=== PATIENT | female | born 1985 | race Caucasian/White ===

== ENCOUNTER → 2017-09-10 09:24 | Outpatient (CLI) | payer OTHER, SELFPAY ==
[2017-09-10 10:54] LABS: Absolute Neutrophil Count 3.3 X10^3/uL (2.0-7.7); Basophil# 0.05 X10^3/uL; Basophil% 0.8 % (0-1); Eosinophil# 0.08 X10^3/uL; Eosinophils% 1.3 % (0-5); Hematocrit 43.1 % (37-47); Hemoglobin 14.6 g/dl (12.0-15.0); Lymphocyte % 36.2 % (19-41); Mean Corp Hgb Conc 33.9 g/gl (32-36); Mean Corpuscular Hgb 29.6 pg (27.0-32.0); Mean Corpuscular Volume 87.4 fL (81-99); Mean Platelet Vol. 10.5 fl (6.2-12.0); Monocyte# 0.47 X10^3/uL; Monocyte% 7.7 % (0-10); Neutrophil # 3.26 X10^3/uL (2.7-7.7); Neutrophil % 53.8 % (47-70); POSITIVE COUNT NO; POSITIVE DIFFERENTIAL NO; POSITIVE MORPHOLOGY NO; Platelet Count 318 K/mm3 (150-450); RBC Distribution Width CV 12.8 % (11.6-14.6); RBC Distribution Width SD 40.6 fl (35.1-43.9); Red Blood Count 4.93 M/mm3 (4.2-5.4); White Blood Count 6.1 K/mm3 (4.4-11.0)
[2017-09-10 11:43] LABS: Free T3 2.7 pg/mL (2.18-3.98); T4 Total, Thyroxin 9.3 ug/dL (4.8-13.9); Thyroid Stim Hormone (TSH) 1.75 uIU/mL (0.358-3.74)
== END ==
PROVIDERS: Family Provider Family Medicine; PCP Family Medicine; Visit Provider Family Medicine
DX: E03.9 Hypothyroidism, unspecified (principal)
CPT/HCPCS: 36415; 84436; 84443; 84481; 85025

== ENCOUNTER → 2018-01-24 15:37 | Outpatient (CLI) | payer OTHER, SELFPAY ==
[2018-01-24 18:35] LABS: Thyroid Stim Hormone (TSH) 1.81 uIU/mL (0.358-3.74)
== END ==
PROVIDERS: Family Provider Family Medicine; PCP Family Medicine; Visit Provider Family Medicine
DX: E03.9 Hypothyroidism, unspecified (principal)
CPT/HCPCS: 36415; 84443

== ENCOUNTER → 2018-02-22 16:49 | Outpatient (CLI) | payer OTHER, SELFPAY ==
[2018-02-25 13:27] LABS: HPV Reflexed? NOT INDICATED
== END ==
PROVIDERS: Visit Provider Obstetrics & Gynecology
DX: Z12.4 Encounter for screening for malignant neoplasm of cervix (principal)
CPT/HCPCS: 88175; G0145

== ENCOUNTER 2018-05-04 10:15 | Day surgery (SDC) | payer OTHER, SELFPAY ==
--- NOTE | 2018-05-03 17:31 | PCM.HPOB.BLA ---
History and Physical Date of Admission: 05/04/18 Date: 05/03/2018 Name: WILLEM RAMOS Age: 32 Date of : 1985 HISTORY OF PRESENT ILLNESS: On 05/03/2018, Willem Ramos, a 32 year old female 2 0 0 0 2, presented for: -- Willem is here for bilateral tubal ligation as spouse not as comfortable with vasectomy. They are certain they are done with childbearing. Reviewed R,B,A of laparoscopic BTO, BTF vs bilateral salpingectomy Prefers bilateral salpingectomy for potential decreased risk of ovarian cancer. EB ALLERGIES: Nortriptyline, Skin rash MEDICATIONS HISTORY: Current medications prescribed by our practice are: 1. moybsziyfn-yadakcsqunxbw-dgxnlbcm 50 mg-325 mg-40 mg tablet, 1 to 2 po q 4 hr prn AMBROSE 2. Synthroid 50 mcg tablet, 1 tab daily 3. Xopenex HFA 45 mcg/actuation aerosol inhaler, 1 to 2 puff q 4 hr prn Patient is also takin. vitamin B complex capsule 2. Wellbutrin XL 300 mg 24 hr tablet, extended release, 1 daily 3. gabapentin 100 mg capsule, daily REVIEW OF SYSTEMS: GENERAL - Denies fever, or chills SKIN - Denies skin changes EYES - Denies visual changes EARS - Denies difficulty hearing NOSE - Denies nasal congestion or bleeding MOUTH - Denies sore throat or difficulty swallowing NECK - Denies pain or swelling RESPIRATORY - Denies shortness of breath or wheezing CARDIOVASCULAR - Denies palpitations or chest pain GASTROINTESTINAL - Denies nausea, vomiting, diarrhea, constipation GENITOURINARY - Denies dysuria, frequency of urination, incontinence of urine MUSCULOSKELETAL - Denies joint or muscle pain NEUROLOGICAL - Denies localized numbness or weakness PSYCHIATRIC - Denies depression or anxiety ENDOCRINE - Denies heat or cold intolerance, weight loss or gain HEMATO-IMMUNOLOGIC - Denies excesive bleeding with cuts PAST HISTORY: Breast/Ovarian/Colon Cancers - Denies Infections - Chicken pox and mono Illnesses - mild asthma allergy induced. No wheezing x 3 y. Accidents - lower back issues, fall as child History of Abnormal PAPS - Denies Hospitalizations - surgery SURGICAL HISTORY: 1. right knee surgery, 2000 2. 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 Tax season 50+. Spouse-Sig Other Name - Niranjan Spouse-Sig Other Occupation - [employer], president Spouse-Sig Other Phone No - [phone] Children Name(s) - Prachi Hernandez ([id number] Control - condoms PHYSICAL EXAMINATION BP- 120/94 Sitting, Right arm, large cuff Weight- 246.60 lbs Height- 67.00 inch BMI:38.70 CONSTITUTIONAL - NAD, well nourished, and well developed HEENT - Normocephalic, PERRLA, EOMI NECK - no nuchal rigidity ASSESSMENT: 1. Other Specified Counseling PLAN BY DIAGNOSIS: 1. Other Specified Counseling Requesting bilateral tubal ligation. Reviewed methods: R,B,Alternatives and failure rates Advised against ESSURE. May consider L/S BTO Filshie clips, L/S bilateral tubal fulgeration, or laparoscopic bilateral salpingectomy Laparoscopic bilateral salpingectomy as planned. RTO in 2 wk for postop follow up appt in office. Medication(s) Stopped/Reason: Vitamin tablet - No Longer Needed, DHA Algal-900 300 mg capsule - No Longer Needed and smhjcvbhvg-xysbhpyoiwdrj-phitfdcm 50 mg-325 mg-40 mg tablet - No Longer Needed
[2018-05-04] VITALS (10 sets, daily range): BP systolic 122–137; BP diastolic 66–81; PULSE 70–95; RESP 14–16; TEMP 23.3–36.9; O2SAT 93–99; BMI 38.4
--- NOTE | 2018-05-04 | FALS_PTH ---
PATIENT: WILLEM RAMOS LOC: [facility] [place] U#:[id number] AGE/SX: 32/F ROOM: RE05/04/[address]: Dr. Evie Baez MD : 1985 BED: DIS: 05/04/2018 SPEC #: [id number] RECD: 05/05/18 10:53 STATUS: LORA RESalvador #: [id number] JAMIE: 05/04/18 00:[address]: Evie Baez DEPT: SURGICAL PATHOLOGY RECD BY: Fidencio Albrecht ENTERED: 05/05/18 10:53 SP TYPE: FALL TUBES OTHR DR: Dr. Jose Eduardo Oswald MD Tissues: Fallopian tube Procedures: Surgery Specimen Level II HEADER OPERATION: Laparoscopic salpingectomy PRE-OP DIAGNOSIS: Sterilization request TISSUE SUBMITTED: Bilateral fallopian tubes MICROSCOPIC DIAGNOSIS Bilateral fallopian tubes, bilateral salpingectomy: Bilateral fallopian tubes including fimbrial ends, no pathologic diagnosis. SJ:jasmin 05/06/18 MICROSCOPIC DESCRIPTION Slides are reviewed. GROSS DESCRIPTION Received is one container labeled with the patient's name and designated bilateral fallopian tubes. The specimen consists of bilateral fallopian tubes including fimbrial ends. The fallopian tubes are not identified as right or left. One of the fallopian tubes measure 7 cm in length and 0.7 cm in diameter and the second fallopian tube measures 6.5 cm in length and up to 0.8 cm in diameter. Also present in the container are detached pieces of tissue consistent with fimbrial end measuring in aggregate 1.5 x 1 x 0.3 cm. Detached pieces of fimbrial ends are inked black. Pinking Machine Operator sections are submitted in two cassettes with each cassette containing one fallopian tube and detached pieces of fimbrial ends are submitted in cassette 2. / DANIEL:jasmin 05/05/18 TC:4 CPT: 96475 x2
[2018-05-04 10:47] LABS: Internal QC Validated? YES +Cl - CLEAR BKGD; Pregnancy, Urine Negative Negative
--- NOTE | 2018-05-04 12:08 | PCM.DC.TUB ---
Discharge Diet: No Restrictions Discharge Activity: Return to Normal Activity Return to work on:: 05/09/18 May resume sexual activity in: 1 week - when comfortable Additional Activity Instructions:: Ambulate often the next week after surgery. Nothing in the vagina for 5 days. Change Dressing in (Days):: 4 Remove Dressing in (days):: 4 Cleanse incision/area with: Soap & Water, Keep Dressing Clean & Dry Additional Instructions: Resume activity as tolerated / comfortable on 05/05/18. You may take TWO Aleve or Three Ibuprofen every 8 hr as needed for milder pain. Add Percocet as needed for more severe pain. Allergies/Adverse Reactions: Allergies coconut oil Allergy (Verified 05/04/18 10:31) Anaphylaxis swelling in face nortriptyline [Nortriptyline] Allergy (Verified 05/04/18 10:31) Rash Medications to take at Discharge Levothyroxine [Synthroid] 50 mcg PO DAILY #30 tablet 03/22/14 Levalbuterol Tartrate [Xopenex Hfa Inhaler] 1 puff INHALATION PRN PRN 01/28/16 [place]-3 Fatty Acids [Fish Oil] 500 mg PO DAILY 01/28/16 Vit B Comp&C/Folic Acid/Vit D3 1 tab PO DAILY 01/28/16 buPROPion tablets [Wellbutrin tablets] 350 mg PO QHS 01/04/17 Cholecalciferol (Vitamin D3) [Vitamin D3] 5,000 unit PO DAILY 04/27/18 Gabapentin [Neurontin] 100 mg PO QHS 04/27/18 Oxycodone HCl/Acetaminophen [Percocet 5-325] 1 - 2 tablet PO Q6H PRN PRN 2 Days #10 tablet 05/04/18 The following prescriptions were given: Oxycodone HCl/Acetaminophen [Percocet 5-325] 1 - 2 tablet PO Q6H PRN PRN 2 Days #10 tablet PRN Reason: Moderate Pain Primary Care Physician: Jose Eduardo Oswald MD [Primary Care Provider] - Test Results: Test results from this visit will be discussed in further detail at your follow-up appointment, if applicable. Please Follow Up With: Evie Baez MD - [phone] When: in two weeks for postoperative appointment, incision check. Proposed Discharge Date: 05/04/18
--- NOTE | 2018-05-04 12:12 | DCINST_ITS ---
Discharge Diet: No Restrictions Discharge Activity: Return to Normal Activity Return to work on:: 05/09/18 May resume sexual activity in: 1 week - when comfortable Additional Activity Instructions:: Ambulate often the next week after surgery. Nothing in the vagina for 5 days. Change Dressing in (Days):: 4 Remove Dressing in (days):: 4 Cleanse incision/area with: Soap & Water, Keep Dressing Clean & Dry Additional Instructions: Resume activity as tolerated / comfortable on 05/05/18. You may take TWO Aleve or Three Ibuprofen every 8 hr as needed for milder pain. Add Percocet as needed for more severe pain. Allergies/Adverse Reactions: Allergies coconut oil Allergy (Verified 05/04/18 10:31) Anaphylaxis swelling in face nortriptyline [Nortriptyline] Allergy (Verified 05/04/18 10:31) Rash Medications to take at Discharge Levothyroxine [Synthroid] 50 mcg PO DAILY #30 tablet 03/22/14 Levalbuterol Tartrate [Xopenex Hfa Inhaler] 1 puff INHALATION PRN PRN 01/28/16 [place]-3 Fatty Acids [Fish Oil] 500 mg PO DAILY 01/28/16 Vit B Comp&C/Folic Acid/Vit D3 1 tab PO DAILY 01/28/16 buPROPion tablets [Wellbutrin tablets] 350 mg PO QHS 01/04/17 Cholecalciferol (Vitamin D3) [Vitamin D3] 5,000 unit PO DAILY 04/27/18 Gabapentin [Neurontin] 100 mg PO QHS 04/27/18 Oxycodone HCl/Acetaminophen [Percocet 5-325] 1 - 2 tablet PO Q6H PRN PRN 2 Days #10 tablet 05/04/18 The following prescriptions were given: Oxycodone HCl/Acetaminophen [Percocet 5-325] 1 - 2 tablet PO Q6H PRN PRN 2 Days #10 tablet PRN Reason: Moderate Pain Primary Care Physician: Jose Eduardo Oswald MD [Primary Care Provider] - Test Results: Test results from this visit will be discussed in further detail at your follow- up appointment, if applicable. Please Follow Up With: Evie Baez MD - [phone] When: in two weeks for postoperative appointment, incision check. Proposed Discharge Date: 05/04/18
[2018-05-04] MEDS: Bupiv/Epi 0.5% Mpf 30 ML Vial (12:31)
--- NOTE | 2018-05-04 13:14 | PCM.OP.BLANK ---
Operative Report Date of Procedure: 05/04/18 PROCEDURE: Laparoscopic Bilateral Salpingectomy PREOPERATIVE DIAGNOSIS: Sterilization request POSTOPERATIVE diagnosis: Sterilization request Surgeon: Evie Baez MD Anesthesia: general anesthesia. BALWINDER Villar. Handy Khan MD Production Team Member: none. EBL: minimal Complications: None Drains: Red Moyer catheter used to drain the bladder prior to initiation of the case Fluids: LR replacement Findings; Normal appearing, anteverted uterus. Fallopian tubes and ovaries are WNL. Gross inspection of bowel, omentum. liver edge also WNL. photos were taken of the uterus and ovaries after Bilateral salpingectomy, and of the RUQ / liver edge Narrative account: After the risks, benefits, alternatives of procedure had been reviewed with the patient, informed consent was obtained. The patient was taken back to the Operating room with an IV running. she was positioned on the operating table in dorsal supine position, where she was given general anesthesia. Once asleep she was repositioned to the dorsal lithotomy position and prepped and draped in the usual sterile fashion. A red Moyer catheter was used to drain the bladder prior to initiating the case. A sponge stick was placed into the vagina to allow manipulation of the uterus and cervix during the case. Attention was then turned to the anterior abdominal wall where 0.25 % Marcaine with epinephrine was instilled at the suprapubic and infraumbilical skin and at a point midway between in the midline. Skin incisions were then created in the midline at the suprapubic skin and at the infraumbilical skin and midway between the two. While maintaining upward traction of the anterior abdominal wall a Veress needle was inserted through the umbilical incision into the peritoneal cavity. There was free drop of saline, low opening pressure and free flow of CO2 noted. Once the intraabdominal pressure had reached 15 mm of mercury the Veress needle was removed and a bladeless 5 mm trocar was placed through infraumbilical skin incision into the peritoneal cavity. Correct placement was confirmed using the scope. Under direct visualization then with the patient in Trendelenburg position, a bladeless 5 mm trocar was inserted in through suprapubic skin incision into the peritoneal cavity and at a point midway between the infraumbilical and suprapubic trocars. The uterus as anteverted and both ovaries and fallopian tubes were WNL. The L fallopian tube was grasped and retracted medially and using a LigaSure device the fallopian tube was excised from the ovary and mesosalpinx. Excellent hemostasis was noted at the excision site. The L fallopian tube was brought through the suprapubic trocar and set aside for later pathology review. In a similar manner the R fallopian tube was grasped and retracted medially and the fallopian tube was excised and removed from the abdominal cavity through the suprapubic trochar. The Fallopian tubes were sent to pathology. Excellent hemostasis was noted by visualization of the pelvis, ovaries, and remaining mesosalpinx. Photos were taken of the uterus and Bilateral remaining ovaries and of the RUQ and liver edge. At this point the the procedure was terminated. The pneumoperitoneum was reduced and the instruments and trocars were removed from he the anterior abdominal wall skin. The skin incisions were closed with 4-0 Monocryl in a subcuticular fashion. Dermabond and OpSites were applied to the skin. The sponge stick was removed from the vagina. The patient was returned to dorsal supine position. She was awakened from general anesthesia. She was transferred to the recovery room bed in stable condition after tolerating the procedure well. Sponge, lap, needle and instrument counts were correct x two. Medications given preop and intraoperatively included: 10 cc of 1/2 % Marcaine with epinephrine --used as a subcutaneous block and Toradol 30 mg IV x one. For a complete listing of medications given preop and intraop , please see the anesthesia record.
--- OUTSIDE RECORDS SUMMARY | 2018-06-29 18:38 | XMS RPT_ITS ---
:1985 Author Organization OHIP Care Team Providers Name Role Phone Jose Eduardo Oswald Attending Unavailable Jose Eduardo Oswald Primary Care Unavailable Jose Eduardo Oswald Attending Unavailable Jose Eduardo Oswald Referring Unavailable Jose Eduardo Oswald Primary Care Unavailable Evie Baez Attending Unavailable Evie Baez Attending Unavailable Evie Baez Referring Unavailable Jose Eduardo Oswald Primary Care Unavailable Jose Eduardo Oswald Attending Unavailable Jose Eduardo Oswald Primary Care Unavailable PROBLEMS PROBLEMS DATE TYPE CONDITION / CODE ATTENDING STATUS SOURCE 05/04/2018 Unknown R10.9 - Evie Baez Active [facility] Unspecified Community abdominal pain / Hospital R10.9(ICD-10) Repository 02/22/2018 Unknown Z12.4 - Encounter Evie Baez Active [facility] for screening for [facility] malignant Hospital neoplasm of Repository cervix / Z12.4(ICD-10) 01/24/2018 Unknown E03.9 - Jose Eduardo Oswald Active [facility] Hypothyroidism, Community unspecified / Hospital E03.9(ICD-10) Repository PROCEDURES PROCEDURES No Procedure Records FoundRESULTS RESULTS VITAMIN D,25 HYDROXY Collected: 05/11/2018 Status: F Source: [place] 11:14 AM [facility] [place] TYPE CODE TESTS RESULT OUT OF REFERENCE UNITS RANGE LAB L506.1000 29.95-100.01 ng/mL Low Vitamin D 20.0 25-OH Result Comment: Vitamin D 25(OH) Status Range Deficiency <20 ng/mL (50nmol/L) Insuffciency 20 - 30 ng/mL (50 - 75 nmol/L) Sufficiency 30 - 100 ng/mL (75 - 250 nmol/L) Toxicity >100 ng/mL (>250 nmol/L) Performed By: #### L506.1000 #### [facility] [address], [address] BASIC METABOLIC Collected: 05/11/2018 Status: F Source: JACY PROFILE (BMP) 11:14 AM [facility] [place] TYPE CODE TESTS RESULT OUT OF RANGE REFERENCE UNITS LAB L501.0100 74-106 mg/dL Normal GLU 82 Result Comment: Please note revised GLUCOSE reference range effective 2017. LAB L501.1000 7-18 mg/dL Normal BUN 13 LAB L501.1100 0.55-1.02 mg/dL Normal CREAT,SERUM 1.00 Result Comment: The validity of the calculated GFR AND GFRAA in patients over 70 years has not been determined. Clinical correlation is essential. LAB L501.1110 >60 mL/min Normal EST GFR 69 Result Comment: Non- GFR Calc LAB L501.1115 >60 mL/min Normal EST GFR - AA 83 Result Comment: GFR Calc LAB L501.1300 10-20 RATIO Normal BUN/CRE 13.0 LAB L501.2200 8.5-10.1 mg/dL CA Normal 9.1 LAB L501.5300 136-145 mmol/L NA Normal 140 LAB L501.5600 3.5-5.1 mmol/L K Normal 4.2 LAB L501.5900 98-107 mmol/L CL Normal 107 LAB L501.6100 21.0-32.0 mmol/L Normal CO2 25.0 LAB L501.6200 5-15 Normal GAP 8 Performed By: #### L500.2500, L501.02289, L501.9310, L501.9520 #### [facility] [address] [place], [address] FREE T3 Collected: 05/11/2018 Status: F Source: JACY 11:14 AM [facility] [place] TYPE CODE TESTS RESULT OUT OF RANGE REFERENCE UNITS LAB L501.07615 2.18-3.98 pg/mL Normal FREE T3 2.8 Performed By: #### L500.2500, L501.06404, L501.9310, L501.9520 #### [facility] [place], [place], [address] T4 TOTAL, THYROXIN Collected: 05/11/2018 Status: F Source: JACY 11:14 AM [facility] [place] TYPE CODE TESTS RESULT OUT OF RANGE REFERENCE UNITS LAB L501.9310 4.8-13.9 ug/dL T4 Normal THYROXIN 11.3 Performed By: #### L500.2500, L501.70618, L501.9310, L501.9520 #### [facility] [place], [place], [address] THYROID STIM HORMONE Collected: 05/11/2018 Status: F Source: JACY (TSH) 11:14 AM [facility] [place] TYPE CODE TESTS RESULT OUT OF RANGE REFERENCE UNITS LAB L501.9520 0.358-3.74 uIU/mL Normal TSH 1.25 Performed By: #### L500.2500, L501.03535, L501.9310, L501.9520 #### [facility] [address] [place], [place], [address] OPERATIVE REPORT Observed: 05/06/2018 Status: F Source: JACY 7:57 AM [facility] [place] [facility] Medical Records Department [address] [place] [address] Operative Report 05/04/18 1314 MR#: [id number] Acct: [id number] Name: WILLEM RAMOS Rep #: [id number] : 1985 32 From: Evie Baez MD PCP: JoseE duardo Oswald MD Status: [facility] Y Location: [facility] Operative Report Date of Procedure: 05/04/18 PROCEDURE: Laparoscopic Bilateral Salpingectomy PREOPERATIVE DIAGNOSIS: Sterilization request POSTOPERATIVE diagnosis: Sterilization request Surgeon: Evie Baez MD Anesthesia: general anesthesia. BALWINDER Villar. Handy Khan MD Mail Room: none. EBL: minimal Complications: None Drains: Red Moyer catheter used to drain the bladder prior to initiation of the case Fluids: LR replacement Findings; Normal appearing, anteverted uterus. Fallopian tubes and ovaries are WNL. Gross inspection of bowel, omentum. liver edge also WNL. photos were taken of the uterus and ovaries after Bilateral salpingectomy, and of the RUQ / liver edge Narrative account: After the risks, benefits, alternatives of procedure had been reviewed with the patient, informed consent was obtained. The patient was taken back to the Operating room with an IV running. she was positioned on the operating table in dorsal supine position, where she was given general anesthesia. Once asleep she was repositioned to the dorsal lithotomy position and prepped and draped in the usual sterile fashion. A red Moyer catheter was used to drain the bladder prior to initiating the case. A sponge stick was placed into the vagina to allow manipulation of the uterus and cervix during the case. Attention was then turned to the anterior abdominal wall where 0.25 % Marcaine with epinephrine was instilled at the suprapubic and infraumbilical skin and at a point midway between in the midline. Skin incisions were then created in the midline at the suprapubic skin and at the infraumbilical skin and midway between the two. While maintaining upward traction of the anterior abdominal wall a Veress needle was inserted through the umbilical incision into the peritoneal cavity. There was free drop of saline, low opening pressure and free flow of CO2 noted. Once the intraabdominal pressure had reached 15 mm of mercury the Veress needle was removed and a bladeless 5 mm trocar was placed through infraumbilical skin incision into the peritoneal cavity. Correct placement was confirmed using the scope. Under direct visualization then with the patient in Trendelenburg position, a bladeless 5 mm trocar was inserted in through suprapubic skin incision into the peritoneal cavity and at a point midway between the infraumbilical and suprapubic trocars. The uterus as anteverted and both ovaries and fallopian tubes were WNL. The L fallopian tube was grasped and retracted medially and using a LigaSure device the fallopian tube was excised from the ovary and mesosalpinx. Excellent hemostasis was noted at the excision site. The L fallopian tube was brought through the suprapubic trocar and set aside for later pathology review. In a similar manner the R fallopian tube was grasped and retracted medially and the fallopian tube was excised and removed from the abdominal cavity through the suprapubic trochar. The Fallopian tubes were sent to pathology. Excellent hemostasis was noted by visualization of the pelvis, ovaries, and remaining mesosalpinx. Photos were taken of the uterus and Bilateral remaining ovaries and of the RUQ and liver edge. At this point the the procedure was terminated. The pneumoperitoneum was reduced and the instruments and trocars were removed from he the anterior abdominal wall skin. The skin incisions were closed with 4-0 Monocryl in a subcuticular fashion. Dermabond and OpSites were applied to the skin. The sponge stick was removed from the vagina. The patient was returned to dorsal supine position. She was awakened from general anesthesia. She was transferred to the recovery room bed in stable condition after tolerating the procedure well. Sponge, lap, needle and instrument counts were correct x two. Medications given preop and intraoperatively included: 10 cc of 1/2 % Marcaine with epinephrine --used as a subcutaneous block and Toradol 30 mg IV x one. For a complete listing of medications given preop and intraop , please see the anesthesia record. 05/06/18 0757 <Electronically signed by Evie Baez MD> Date Evie Baez MD CC: Evie Baez MD; Jose Eduardo Oswald MD Signed DISCHARGE INSTRUCTION Observed: 05/04/2018 Status: F Source: JACY 12:13 PM [facility] [place] [facility] Medical Records Department [address] [place] [address] Instructions for Home/Discharge Instructions 05/04/18 1208 MR#: [id number] Acct: [id number] Name: WILLEM RAMOS Rep #: [id number] : 1985 32 From: Evie Baez MD PCP: Jose Eduardo Oswald MD Status: REG SDC Discharge Diet: No Restrictions Discharge Activity: Return to Normal Activity Return to work on:: 05/09/18 May resume sexual activity in: 1 week - when comfortable Additional Activity Instructions:: Ambulate often the next week after surgery. Nothing in the vagina for 5 days. Change Dressing in (Days):: 4 Remove Dressing in (days):: 4 Cleanse incision/area with: Soap AND Water, Keep Dressing Clean AND Dry Additional Instructions: Resume activity as tolerated / comfortable on 05/05/18. You may take TWO Aleve or Three Ibuprofen every 8 hr as needed for milder pain. Add Percocet as needed for more severe pain. Allergies/Adverse Reactions: Allergies coconut oil Allergy (Verified 05/04/18 10:31) Anaphylaxis swelling in face nortriptyline [Nortriptyline] Allergy (Verified 05/04/18 10:31) Rash Medications to take at Discharge Levothyroxine [Synthroid] 50 mcg PO DAILY #30 tablet 03/22/14 Levalbuterol Tartrate [Xopenex Hfa Inhaler] 1 puff INHALATION PRN PRN 01/28/16 Indio-3 Fatty Acids [Fish Oil] 500 mg PO DAILY 01/28/16 Vit B Comp AND C/Folic Acid/Vit D3 1 tab PO DAILY 01/28/16 buPROPion tablets [Wellbutrin tablets] 350 mg PO QHS 01/04/17 Cholecalciferol (Vitamin D3) [Vitamin D3] 5,000 unit PO DAILY 04/27/18 Gabapentin [Neurontin] 100 mg PO QHS 04/27/18 Oxycodone HCl/Acetaminophen [Percocet 5-325] 1 - 2 tablet PO Q6H PRN PRN 2 Days #10 tablet 05/04/18 The following prescriptions were given: Oxycodone HCl/Acetaminophen [Percocet 5-325] 1 - 2 tablet PO Q6H PRN PRN 2 Days #10 tablet PRN Reason: Moderate Pain Primary Care Physician: Jose Eduardo Oswald MD [Primary Care Provider] - Test Results: Test results from this visit will be discussed in further detail at your follow-up appointment, if applicable. Please Follow Up With: Evie Baez MD - [phone] When: in two weeks for postoperative appointment, incision check. Proposed Discharge Date: 05/04/18 05/04/18 1213 <Electronically signed by Evie Baez MD> Date Evie Baez MD CC: Jose Eduardo Oswald MD ,URINE Collected: 05/04/2018 Status: F Source: [place] 10:34 AM [facility] [place] Order Comment: Reason for Laboratory Test PRE OP TYPE CODE TESTS RESULT OUT OF REFERENCE UNITS RANGE LAB L400.8000 Negative Normal HCGUQUAL Negative Result Comment: Very dilute urine specimens, as indicated by a low specific gravity, may not contain sales representative business courses levels of hCG. If is still suspected, a first morning urine specimen should be collected 48 hours later and tested. Performed By: #### L400.7600 #### [facility] [address] [place], [address] FALLOPIAN TUBES/STERILIZATION Observed: 05/04/2018 Status: F Source: [place] 12:00 AM [facility] [place] Patient: WILLEM RAMOS : 1985 (/) Acct Num: [id number] Phys: Evie Baez MD Unit Num: [id number] Loc: [facility] Specimen: [id number] Received: 05/05/183 Spec Type: FALL TUBES TISSUES 1 TISSUES: Fallopian tube GROSS DESCRIPTION Received is one container labeled with the patient's name and designated bilateral fallopian tubes. The specimen consists of bilateral fallopian tubes including fimbrial ends. The fallopian tubes are not identified as right or left. One of the fallopian tubes measure 7 cm in length and 0.7 cm in diameter and the second fallopian tube measures 6.5 cm in length and up to 0.8 cm in diameter. Also present in the container are detached pieces of tissue consistent with fimbrial end measuring in aggregate 1.5 x 1 x 0.3 cm. Detached pieces of fimbrial ends are inked black. Director Outpatient Services sections are submitted in two cassettes with each cassette containing one fallopian tube and detached pieces of fimbrial ends are submitted in cassette 2. / DANIEL:jasmin 05/05/18 TC:4 CPT: 35917 x2 HEADER OPERATION: Laparoscopic salpingectomy PRE-OP DIAGNOSIS: Sterilization request TISSUE SUBMITTED: Bilateral fallopian tubes MICROSCOPIC DESCRIPTION Slides are reviewed. MICROSCOPIC DIAGNOSIS Bilateral fallopian tubes, bilateral salpingectomy: Bilateral fallopian tubes including fimbrial ends, no pathologic diagnosis. DANIEL:jasmin 05/06/18 Signed Matteo Stover 05/06/18 <signature on file> Performed By: #### PFALS #### [facility] [address] [place], [address] HISTORY AND PHYSICAL Observed: 05/03/2018 Status: F Source: [place] EXAM 5:32 PM [facility] [place] [facility] Medical Records Department [address] [place] [address] History and Physical 05/03/18 1731 MR#: [id number] Acct: [id number] Name: WILLEM RAMOS Rep #: [id number] : 1985 32 From: Evie Baez MD PCP: Jose Eduardo Oswald MD Status: PRE [facility] Y Location: [facility] History and Physical Date of Admission: 05/04/18 Date: 05/03/2018 Name: WILLEM RAMOS Age: 32 Date of : 1985 HISTORY OF PRESENT ILLNESS: On 05/03/2018, Willem Ramos, a 32 year old female 2 0 0 0 2, presented for: -- Willem is here for bilateral tubal ligation as spouse not as comfortable with vasectomy. They are certain they are done with childbearing. Reviewed R,B,A of laparoscopic BTO, BTF vs bilateral salpingectomy Prefers bilateral salpingectomy for potential decreased risk of ovarian cancer. EB ALLERGIES: Nortriptyline, Skin rash MEDICATIONS HISTORY: Current medications prescribed by our practice are: 1. aeqjwqkzoq-ekocjeezqgtly-ncfdrosa 50 mg-325 mg-40 mg tablet, 1 to 2 po q 4 hr prn AMBROSE 2. Synthroid 50 mcg tablet, 1 tab daily 3. Xopenex HFA 45 mcg/actuation aerosol inhaler, 1 to 2 puff q 4 hr prn Patient is also takin. vitamin B complex capsule 2. Wellbutrin XL 300 mg 24 hr tablet, extended release, 1 daily 3. gabapentin 100 mg capsule, daily REVIEW OF SYSTEMS: GENERAL - Denies fever, or chills SKIN - Denies skin changes EYES - Denies visual changes EARS - Denies difficulty hearing NOSE - Denies nasal congestion or bleeding MOUTH - Denies sore throat or difficulty swallowing NECK - Denies pain or swelling RESPIRATORY - Denies shortness of breath or wheezing CARDIOVASCULAR - Denies palpitations or chest pain GASTROINTESTINAL - Denies nausea, vomiting, diarrhea, constipation GENITOURINARY - Denies dysuria, frequency of urination, incontinence of urine MUSCULOSKELETAL - Denies joint or muscle pain NEUROLOGICAL - Denies localized numbness or weakness PSYCHIATRIC - Denies depression or anxiety ENDOCRINE - Denies heat or cold intolerance, weight loss or gain HEMATO-IMMUNOLOGIC - Denies excesive bleeding with cuts PAST HISTORY: Breast/Ovarian/Colon Cancers - Denies Infections - Chicken pox and mono Illnesses - mild asthma allergy induced. No wheezing x 3 y. Accidents - lower back issues, fall as child History of Abnormal PAPS - Denies Hospitalizations - surgery SURGICAL HISTORY: 1. right knee surgery, 2000 2. 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 Tax season 50+. Spouse-Sig Other Name - Pricilla Spouse-Sig Other Occupation - [employer], president Spouse-Sig Other Phone No - [phone] Children Name(s) - Mary LE)Prachi Control - condoms PHYSICAL EXAMINATION BP- 120/94 Sitting, Right arm, large cuff Weight- 246.60 lbs Height- 67.00 inch BMI:38.70 CONSTITUTIONAL - NAD, well nourished, and well developed HEENT - Normocephalic, PERRLA, EOMI NECK - no nuchal rigidity ASSESSMENT: 1. Other Specified Counseling PLAN BY DIAGNOSIS: 1. Other Specified Counseling Requesting bilateral tubal ligation. Reviewed methods: R,B,Alternatives and failure rates Advised against ESSURE. May consider L/S BTO Filshie clips, L/S bilateral tubal fulgeration, or laparoscopic bilateral salpingectomy Laparoscopic bilateral salpingectomy as planned. RTO in 2 wk for postop follow up appt in office. Medication(s) Stopped/Reason: Vitamin tablet - No Longer Needed, DHA Algal-900 300 mg capsule - No Longer Needed and brrrejkswh-urxojaedsipub-pwodmjgl 50 mg-325 mg-40 mg tablet - No Longer Needed 05/03/18 6882 <Electronically signed by Evie Baez MD> Date Evie Baez MD Cosigner Signature: Date (if applicable) CC: Evie Baez MD; Jose Eduardo Oswald MD Signed PAP I-G W/RFX HRHPV Collected: 02/22/2018 Status: F Source: [place]AC[place] 2:00 PM [facility] [place] Order Comment: CYTOLOGY INFORMATION: - CLINICAL INFORMATION: - DATE LMP/MENOPAUSE: 02/05/18 LMP - COLLECTION VIAL: Thin Prep Vial - PROCESSOR SOLID PROPELLANT SOURCE: CERVICAL/ENDOCERVICAL - COLLECTION TECHNIQUE: BRUSH/SPATULA Specimen Comment: [id number] Specimen Comment: Source.............Cervix;Endocervix Specimen Comment: LMP / Prev Treat...[id number] Specimen Comment: No. of containers..01 ThinPrep Vial TYPE CODE TESTS RESULT OUT OF RANGE REFERENCE UNITS LAB L7400.0800 . Normal DIAGN Comment Result Comment: NEGATIVE FOR INTRAEPITHELIAL LESION AND MALIGNANCY. LAB L7400.0900 . Normal ADEQ Comment Result Comment: Satisfactory for evaluation. Endocervical and/or squamous metaplastic cells (endocervical component) are present. LAB L7400.1400 . Normal PERFORM Comment Result Comment: Sandy Her, Behavior Management Specialist (ASCP) LAB L7400.2575 . Normal TEST METHOD Comment Result Comment: This liquid based ThinPrep(R) pap test was screened with the use of an image guided system. LAB L7400.2600 . Normal . COMM LAB L7400.2700 . Normal PAPSMR Comment Result Comment: The Pap smear is a screening test designed to aid in the detection of premalignant and malignant conditions of the uterine cervix. It is not a diagnostic procedure and should not be used as the sole means of detecting cervical cancer. Both false-positive and false-negative reports do occur. LAB L7400.2800 . Normal HPV RFLX Comment Result Comment: The HPV DNA reflex criteria were not met with this specimen result therefore, no HPV testing was performed. Performed at: - [facility] [id number] Roof Designer: Sharon Vincent MD, Phone: [phone] Performed By: #### L7400.0350 #### [facility] (refer to report for specific site) refer to report for address and phone number THYROID STIM HORMONE Collected: 01/24/2018 Status: F Source: [place] (TSH) 3:42 PM [facility] [place] TYPE CODE TESTS RESULT OUT OF RANGE REFERENCE UNITS LAB L501.9520 0.358-3.74 uIU/mL Normal TSH 1.81 Performed By: #### L501.9520 #### [facility] [address] [place], [place], [address] CBC W/DIFF, AUTOMATED Collected: 09/10/2017 Status: F Source: [place] 9:26 AM [facility] [place] [facility] TYPE CODE TESTS RESULT OUT OF RANGE REFERENCE UNITS LAB L100.1000 4.4-11.0 K/mm3 Normal WBC 6.1 LAB L100.1200 4.2-5.4 M/mm3 Normal RBC 4.93 LAB L100.1300 12.0-15.0 g/dl Normal HGB 14.6 LAB L100.1400 37-47 % Normal HCT 43.1 LAB L100.1500 81-99 fL Normal MCV 87.4 LAB L100.1600 27.0-32.0 pg Normal MCH 29.6 LAB L100.1700 32-36 g/gl Normal MCHC 33.9 LAB L100.1810 11.6-14.6 % Normal RDW CV 12.8 LAB L100.1820 35.1-43.9 fl Normal RDW SD 40.6 LAB L100.1900 150-450 K/mm3 Normal PLT 318 LAB L100.2000 6.2-12.0 fl Normal MPV 10.5 LAB L100.2100 47-70 % Normal NEUT% 53.8 LAB L100.2200 19-41 % Normal LY% 36.2 LAB L100.2300 0-10 % Normal MONO% 7.7 LAB L100.2400 0-5 % Normal EO% 1.3 LAB L100.2500 0-1 % Normal BASO% 0.8 LAB L100.2550 0.0-0.9 % Normal IM GRAN % 0.200 Result Comment: IG% - Immature Granulocytes (promyelocytes, myelocytes and metamyelocytes) > 1% indicates that a LEFT SHIFT is Present. LAB L100.2620 2.0-7.7 X10 3/uL Normal Absolute Neut 3.3 LAB L100.2720 0.83-4.51 X10 3/ul Normal Absolute Lymph 2.20 Performed By: #### L100.0100 #### [facility] [address] [place], [address] FREE T3 Collected: 09/10/2017 Status: F Source: [place] 9:26 AM [facility] [place] TYPE CODE TESTS RESULT OUT OF RANGE REFERENCE UNITS LAB L501.74140 2.18-3.98 pg/mL Normal FREE T3 2.7 Performed By: #### L501.88883, L501.9310, L501.9520 #### [facility] [address] [place], [address] T4 TOTAL, THYROXIN Collected: 09/10/2017 Status: F Source: [place] 9:26 AM [facility] [place] TYPE CODE TESTS RESULT OUT OF RANGE REFERENCE UNITS LAB L501.9310 4.8-13.9 ug/dL T4 Normal THYROXIN 9.3 Performed By: #### L501.06777, L501.9310, L501.9520 #### [facility] [address] [place], [address] THYROID STIM HORMONE Collected: 09/10/2017 Status: F Source: [place]AC[place] (TSH) 9:26 AM [facility] [place] TYPE CODE TESTS RESULT OUT OF RANGE REFERENCE UNITS LAB L501.9520 0.358-3.74 uIU/mL Normal TSH 1.75 Performed By: #### L501.51007, L501.9310, L501.9520 #### [facility] [address] [place], [address] ALLERGIES ALLERGIES DATE TYPE / CODE NAME / CODE REACTION SEVERITY SOURCE 05/04/2018 Drug coconut Anaphylaxis Unknown [facility] Allergy/416 oil/[id number] [facility] 232759([facility] (RXNORM) [facility] ED CT) Repository 05/04/2018 Drug nortriptyline/ Rash Unknown [facility] Allergy/416 [id number](RXN [facility] [id number][facility]ository ENCOUNTERS ENCOUNTERS ADMIT/DISCHARGE ACCOUNT ADMITTING ENCOUNTER LOCATION SOURCE NUMBER CLASS 05/11/2018 [id number] [facility] ing:MFPLAB Repository 05/04/2018/ [id number] Ambulatory [address] ing:SDCRoom: Repository AC10 02/22/2018 [id number] Ambulatory [facility] 4 [facility] ing:LABSPEC Repository 01/24/2018 [id number] Ambulatory [facility] 8 [facility] ing:MTLAB Repository 09/10/2017 [id number] Ambulatory [facility] ing:LABSPEC Repository PAYERS PAYERS ENCOUNTER GUARANTOR PAYER SUBSCRIBER SOURCE 05/11/2018 WILLEM PADILLA Primary Insurance:MED WILLEM HOOKERCEDOB: [facility] [address] [place] TPAPolicy [id number] [facility] [place] [address]Umz: Number: [facility] [id number] Repository (HP) Date:[id number] [address] [address] [address]AH: CHECK WEBSITE 05/11/2018 Secondary NOT GIV[place]UNK [place] Insurance:SELF PAY [facility] Number: Effective Repository Date:2018-05-11 05/04/2018 WILLEM PADILLA Primary Insurance:MED WILLEM RENEOB: [place] [address] [place] TPAPolicy [id number] [facility] [id number]: Number: [facility] [id number] Repository (HP) Date:[id number] [address], [place] [address]ZJ: CHECK WEBSITE 05/04/2018 Secondary NOT GIVENUNK [place] Insurance:SELF PAY [facility] Number: Effective Repository Date:2018-04-11 02/22/2018 WILLEM [id number] Primary Insurance:MED WILLEM RENEOB: Jacy GASCHE [place] TPAPoly [id number] [place], [place] Number: [facility] [id number]: (999) [id number] Repository [phone] () Date:[id number] [address] [address], [place] [address]RC: CHECK WEBSITE 02/22/2018 Secondary NOT GIVENUNK [place] Insurance:SELF PAY [facility] Number: Effective Repository Date:2018-02-22 01/24/2018 WILLEM PADILLA Primary Insurance:MED WILLEM RENEOB: [place] [address] [id number] [facility] [address]Vks: Number: [facility] [id number] Repository () Date:[id number] [address] [address], [place] [address]TG: CHECK WEBSITE 01/24/2018 Secondary NOT GIVENUNK [place] Insurance:SELF PAY [facility] Number: Effective Repository Date:2018-01-24 09/10/2017 Willem Ramos1627 Primary Insurance:IVY Shin: Jacy Gasche [facility] [place] [id number] Number: [facility] [id number]: (804) [id number] Repository [phone] () Date:[id number] [address] [address], [place] [address]EG: CHECK WEBSITE 09/10/2017 Secondary NOT GIVENUNK [place] Insurance:SELF PAY [facility] Number: Effective Repository Date:2017-09-10
== END 2018-05-04 15:06 | disposition home or self-care (01) ==
LOC: SDC 10:16 → AC 10:17
PROVIDERS: Family Provider Family Medicine; PCP Family Medicine; Referring Provider Obstetrics & Gynecology; Visit Provider Obstetrics & Gynecology
PROC: (CPT 58661; principal; 2018-05-04 11:45)
DX: Z30.2 Encounter for sterilization (principal); F41.9 Anxiety disorder, unspecified; F32.9 Major depressive disorder, single episode, unspecified; Z79.899 Other long term (current) drug therapy; E07.9 Disorder of thyroid, unspecified
CPT/HCPCS: 00840; 58661; 81025; 88302; J7120; J2405

== ENCOUNTER → 2018-05-11 11:13 | Outpatient (CLI) | payer OTHER, SELFPAY ==
[2018-05-04 10:34] VITALS: BMI 38.4
[2018-05-11 16:16] LABS: Anion Gap 8 (5-15); BUN 13 mg/dL (7-18); Calcium,Total 9.1 mg/dL (8.5-10.1); Chloride 107 mmol/L (98-107); EST Glomerular Filtration Rate 69 mL/min (>60); Est Glom Filt Rate - Afr Amer 83 mL/min (>60); Free T3 2.8 pg/mL (2.18-3.98); Glucose 82 mg/dL (74-106); Potassium 4.2 mmol/L (3.5-5.1); Sodium Level 140 mmol/L (136-145); T4 Total, Thyroxin 11.3 ug/dL (4.8-13.9); Thyroid Stim Hormone (TSH) 1.25 uIU/mL (0.358-3.74)
== END ==
PROVIDERS: Family Provider Family Medicine; PCP Family Medicine; Visit Provider Family Medicine
DX: E03.9 Hypothyroidism, unspecified (principal); E55.9 Vitamin D deficiency, unspecified
CPT/HCPCS: 36415; 80048; 82306; 84436; 84443; 84481

== ENCOUNTER → 2019-03-22 09:04 | Outpatient (CLI) | payer OTHER, SELFPAY ==
[2018-05-04 10:34] VITALS: BMI 38.4
[2019-03-22 10:44] LABS: Anion Gap 5 (5-15); BUN 11 mg/dL (7-18); BUN/Creat Ratio 11.3 RATIO (10-20); Calcium,Total 9.2 mg/dL (8.5-10.1); Chloride 107 mmol/L (98-107); Creatinine, Serum 0.97 mg/dL (0.55-1.02); EST Glomerular Filtration Rate 70 mL/min (>60); Est Glom Filt Rate - Afr Amer 85 mL/min (>60); Free T3 2.9 pg/mL (2.18-3.98); Glucose 89 mg/dL (74-106); Potassium 3.8 mmol/L (3.5-5.1); Sodium Level 140 mmol/L (136-145); T4 Total, Thyroxin 8.8 ug/dL (4.8-13.9); Thyroid Stim Hormone (TSH) 3.01 uIU/mL (0.358-3.74)
== END ==
PROVIDERS: Family Provider Family Medicine; PCP Family Medicine; Referring Provider Family Medicine; Visit Provider Family Medicine
DX: Z00.00 Encounter for general adult medical examination without abnormal findings (principal); E03.9 Hypothyroidism, unspecified
CPT/HCPCS: 36415; 80048; 84436; 84443; 84481

== ENCOUNTER → 2020-08-27 | Outpatient (CLI) | payer BC, SELFPAY ==
[2020-08-27 08:57] VITALS: BMI 33.3
[2020-08-31 12:07] LABS: HPV APTIMA, High Risk Negative (Negative)
== END | disposition home or self-care (01) ==
LOC: LABSPEC 17:01
PROVIDERS: PCP Family Medicine; Visit Provider Obstetrics & Gynecology
DX: Z12.4 Encounter for screening for malignant neoplasm of cervix (principal)
CPT/HCPCS: 87624; 88175; G0145

== ENCOUNTER 2021-08-06 12:12 | Outpatient (CLI) | payer MEDICAID, SELFPAY ==
[2021-08-06 15:59] LABS: Vitamin D,25 Hydroxy 35.1 ng/mL
[2021-08-06 16:32] LABS: Anion Gap 6 (5-15); BUN 12 mg/dL (7-18); BUN/Creat Ratio 13.6 RATIO (10-20); Calcium,Total 8.8 mg/dL (8.5-10.1); Chloride 108 mmol/L (98-107); Creatinine, Serum 0.88 mg/dL (0.55-1.02); EST Glomerular Filtration Rate 77 mL/min (>60); Est Glom Filt Rate - Afr Amer 94 mL/min (>60); Glucose 79 mg/dL (74-106); Potassium 3.8 mmol/L (3.5-5.1); Sodium Level 139 mmol/L (136-145)
== END 2021-08-06 23:59 | disposition home or self-care (01) ==
LOC: MFPLAB 12:14
PROVIDERS: PCP Family Medicine; Referring Provider Family Medicine; Visit Provider Nurse Practitioner Family
DX: N39.0 Urinary tract infection, site not specified (principal); B37.3 Candidiasis of vulva and vagina; E03.9 Hypothyroidism, unspecified; R53.83 Other fatigue
CPT/HCPCS: 36415; 80048; 82306; 84443; 87070; 87086; 87088; 87186; 87205

== ENCOUNTER 2021-09-13 20:43 | Emergency (ER) | payer OTHER, SELFPAY ==
[2021-09-13 20:44] VITALS: BP 139/110; PULSE 86; RESP 16; TEMP 36.1; O2SAT 98; BMI 34.4
--- NOTE | 2021-09-13 20:55 | CT_ITS ---
EXAM: CT CERVICAL SPINE WITHOUT INTRAVENOUS CONTRAST CLINICAL INDICATION: HIT IN POSTERIOR HEAD BY HER HORSES HEAD THIS AM, SEVERE AMBROSE SINCE TECHNIQUE: Helically acquired images were obtained of the cervical spine without intravenous contrast. 2D reformatted images were reviewed. This CT exam was performed using one or more of the following dose reduction techniques: automated exposure control, adjustment of the mA and/or kV according to patient size, and/or use of iterative reconstruction technique. This report was created using [employer] report generation technology. COMPARISON: None. FINDINGS: VERTEBRAE: Unremarkable. No fracture. No traumatic subluxation. No discrete lytic or blastic abnormality. Normal alignment. Normal craniocervical junction and cervicothoracic junction. DISCS/SPINAL CANAL/NEURAL FORAMINA: Unremarkable. Disc heights are preserved. No critical stenosis. SOFT TISSUES: Unremarkable. No prevertebral soft tissue swelling. LYMPH NODES: Unremarkable. No cervical adenopathy. LUNG APICES: Unremarkable as visualized. Clear. CT/Spine Cervical without Contras IMPRESSION: No evidence of acute cervical spinal fracture or spondylolisthesis. Electronically Signed: Lalo Jade MD (Brooks) at 21:30 EDT Reading Location ID and State: [facility] / [place] , Service support ,
--- NOTE | 2021-09-13 20:55 | CT_ITS ---
STUDY: CT BRAIN WITHOUT CONTRAST REASON FOR EXAM: Female, 36 years old. HIT IN POSTERIOR HEAD BY HER HORSES HEAD THIS AM, SEVERE AMBROSE SINCE RADIATION DOSAGE (If Supplied By Facility): CTDIvol = ( 44.99 ) mGy, DLP = ( 796.11 ) mGycm TECHNIQUE: Transaxial CT imaging of the brain was performed without administration of intravenous contrast material. Individualized dose optimization techniques were used for this CT. COMPARISON: No relevant priors. FINDINGS: Normal soft tissue structures. Normal calvarium. Normal size ventricles and extra-axial spaces for the patient''s age. Normal white matter tracts of the cerebral hemispheres. Normal basal ganglia and thalami. Normal brainstem. Normal cerebellum. There is no intracranial hemorrhage. There are no findings of an acute ischemic infarction. Normal visualized paranasal sinuses. CT/Brain/Head without Contrast IMPRESSION: Normal unenhanced CT scan of the brain. Electronically Signed: Lalo Jade MD (Brooks) at 21:29 EDT ,
--- NOTE | 2021-09-13 20:55 | EDS_ITS ---
HPI History of Present Illness Chief Complaint: Head Injury Narrative Narrative: Patient who denies significant past medical history presents with her because of injury to her head that she sustained 10 to 11 hours ago. She states she was brushing a 400 pound ponies chest when she tickled the chest, and the horse brought up its head to bite the patient on the back of her head. The horse's teeth struck her in the back of the head. She denies any loss of consciousness but now has a headache but continue to work. She can planes of numbness and tingling of her arms, and a headache on the right front of her head mainly, spreading to all over. No current nausea or vomiting. No other injury. There was no reported loss of consciousness. Throughout the day, her headache is gotten worse. [facility] Medical History (Updated 09/13/21 @ 21:46 by Lj Weaver MD) Anxiety and depression Thyroid disorder Home Medications levothyroxine 50 mcg PO DAILY #30 tab 03/22/14 [Rx Last Taken 05/04/18] Vit B Comp&C/Folic Acid/Vit D3 1 tab PO DAILY 01/28/16 [History Last Taken 02/17/16 08:00 1 tab] omega-3 fatty acids 500 mg PO DAILY 01/28/16 [History Last Taken 02/17/16 08:00 1 tab] cholecalciferol (vitamin D3) 5,000 unit PO DAILY 04/27/18 [History Last Taken Unknown] naltrexone 8 mg-bupropion 90 mg tablet,extended release 1 tab PO ONCE 03/14/20 [ History Last Taken Unknown] citalopram 20 mg tablet See Rx Instructions .ROUTE .COMPLEX #90 tab 04/15/21 [Rx Last Taken Unknown] etonogestrel 0.12 mg-ethinyl estradiol 0.015 mg/24 hr vaginal ring 1 vag ring VAGINAL ONCE 28 Days #1 ea 08/04/21 [Rx Last Taken Unknown] L norgest/E estradiol-E estrad 0.15 mg-30 mcg (84)/10 mcg(7) tabs,3mos 1 tab PO DAILY #91 tab 08/11/21 [Rx Last Taken Unknown] Allergy/AdvReac Type Severity Reaction Status Date / Time coconut oil Allergy Anaphylaxis Verified 09/13/21 20:44 nortriptyline [Nortriptyline] Allergy Rash Verified 09/13/21 20:44 Family History Unknown Heart disease Hypertension Myocardial infarction Surgical History Encounter for tubal ligation H/O: knee surgery Social History Smoking Status: Never smoker alcohol intake: never substance use type: does not use caffeine: Yes what type of physical activity do you participate in: walking frequency: 3-4 times per week seatbelt use: always do you feel safe at home: Yes additional 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 HEENT: No sore throat. No neck pain. No loss of vision. No rhinorrhea. Cardiovascular: No chest pain. No palpitations. No pedal edema. Respiratory: No cough, no shortness of breath. Abdominal: No abdominal pain. No nausea. No vomiting. Genitourinary: No dysuria. No hematuria. Musculoskeletal: No myalgias. No arthralgias. Neurologic: Positive worsening headache. No dizziness. No lightheadedness. Positive paresthesias bilateral upper extremities. Skin: No rash. No change in color. Psychiatric: No depression. No anxiety. EXAM Physical Exam Narrative Exam Narrative: Afebrile. Vital signs noted. GCS 15. ABCs are intact. HEENT: Normocephalic. Mild tenderness to palpation in occiput. No noted lacerations. PERRL, EOMI. Neck soft and supple. No point tenderness or step off. Full range of motion without pain. Cardiovascular: Regular rate and rhythm. No murmurs, rubs, or gallops appreciated. Respiratory: No tachypnea. Lungs clear to auscultation bilaterally. Gastrointestinal: Abdomen soft, nontender, with normoactive bowel sounds. No rebound or guarding. Neurological: Awake. Alert. Nonfocal, nonlateralizing. Able to raise arms above head without difficulty. Skin: No rash. Normal color. No pallor. Musculoskeletal: No pedal edema. Full range of motion extremities. Psychiatric: Tearful on examination. Const Vital Signs: 09/13/21 20:44 09/13/21 20:53 Temperature 97.0 F L Temperature Source Temporal Pulse Rate 86 Respiratory Rate 16 Respiratory Effort Normal Non-Labored Respiratory Depth Normal Respiratory Pattern Normal Blood Pressure 139/110 H Blood Pressure Mean 119 Pulse Ox 98 Oxygen Delivery Method Room Air Room Air MDM MDM MDM Narrative Medical decision making narrative: Patient is showing signs of postconcussive syndrome. She does not take blood thinners. Is been 10 to 11 hours since her initial injury. However, given the mechanism of action I will obtain a CT of the brain and a CT of the C-spine. Analgesics will be held until CT reports showed no evidence of hemorrhage. However, I was informed that the patient already took [address] the brain and CT of the C-spine showed no acute process, no hemorrhage or skull fracture. No C-spine fracture. At this point in time, I feel she be discharged safely home. She was instructed on brain rest and told to follow-up with her primary care provider in 7 to 10 days should she still have symptoms. Return instructions to the emergency department were reviewed. Disposition is discharged home in stable condition. Radiography Diagnostic Testing: Clinical Impression(s) from Imaging Studies Brain CT 09/13/21 20:55 IMPRESSION: Normal unenhanced CT scan of the brain. Electronically Signed: Lalo Jade MD (Brooks) at 21:29 EDT , Cervical Spine CT 09/13/21 20:55 IMPRESSION: No evidence of acute cervical spinal fracture or spondylolisthesis. Electronically Signed: Lalo Jade MD (Brooks) at 21:30 EDT , Discharge Plan Triage Chief Complaint: Head Injury ED Provider: Lj Weaver Dx/Rx/DC Orders Clinical Impression: Concussion, Closed head injury, Paresthesia, Contusion of scalp Instructions: ED Concussion, ED Scalp Contusion, ED Head Injury (Adult), ED Paraesthesias Prescriptions: No Action Contrave 8-90 mg tablet extended release 1 tab PO ONCE RF: 0 levothyroxine 50 MCG tablet 50 mcg PO DAILY Qty: 30 RF: 1 omega-3 fatty acids 500 MG capsule 500 mg PO DAILY RF: 0 Vit B Comp&C/Folic Acid/Vit D3 1 tab PO DAILY RF: 0 cholecalciferol (vitamin D3) 5,000 UNIT capsule 5,000 unit PO DAILY RF: 0 citalopram 20 mg tablet See Rx Instructions .ROUTE .COMPLEX Qty: 90 RF: 4 etonogestrel-ethinyl estradiol [NuvaRing] 0.12-0.015 mg/24 hr ring 1 vag ring vaginal ONCE 28 Days Qty: 1 RF: 12 L norgest/e.estradiol-e.estrad [Ashlyna] 0.15 mg-30 mcg (84)/10 mcg (7) tablets,dose pack,3 month 1 tab PO DAILY Qty: 91 RF: 4 Primary Care Provider: Jose Eduardo Oswald Referrals: Jose Eduardo Oswald MD [Primary Care Provider] - 1 Week if not improving Disposition Disposition: Home, Self Care
[2021-09-13 21:52] VITALS: BP 125/85; PULSE 78; RESP 16; O2SAT 97
== END 2021-09-13 21:53 | disposition home or self-care (01) ==
PROVIDERS: Emergency Provider Emergency Medicine; PCP Family Medicine; Visit Provider Emergency Medicine
DX: S06.0X0A Concussion without loss of consciousness, initial encounter (principal); F41.9 Anxiety disorder, unspecified; F32.A Depression, unspecified; E07.9 Disorder of thyroid, unspecified; Z79.899 Other long term (current) drug therapy; W55.89XA Other contact with other mammals, initial encounter; Y93.9 Activity, unspecified; Y92.9 Unspecified place or not applicable; S00.03XA Contusion of scalp, initial encounter; R20.2 Paresthesia of skin
CPT/HCPCS: 70450; 72125; 99282

== ENCOUNTER 2021-09-18 17:21 | Outpatient (CLI) | payer OTHER, SELFPAY | END 2021-09-18 23:59 | disposition home or self-care (01) | PROVIDERS: PCP Family Medicine; Referring Provider Obstetrics & Gynecology; Visit Provider Obstetrics & Gynecology | DX: R39.15 Urgency of urination (principal) | CPT/HCPCS: 87086; 87088 ==

== ENCOUNTER → 2022-05-13 | Outpatient (CLI) | payer OTHER, SELFPAY ==
[2022-05-13 18:18] LABS: Vitamin D,25 Hydroxy 50.7 ng/mL
[2022-05-13 18:22] LABS: Anion Gap 3 (5-15); BUN 10 mg/dL (7-18); BUN/Creat Ratio 9.2 RATIO (10-20); Calcium,Total 9.6 mg/dL (8.5-10.1); Chloride 105 mmol/L (98-107); Cholesterol 260 mg/dL (200); Creatinine, Serum 1.09 mg/dL (0.55-1.02); EST Glomerular Filtration Rate 61 mL/min (>60); Est Glom Filt Rate - Afr Amer 73 mL/min (>60); Glucose 98 mg/dL (74-106); High Density Lipoprotein 53 mg/dL; Potassium 3.8 mmol/L (3.5-5.1); Sodium Level 140 mmol/L (136-145); Thyroid Stim Hormone (TSH) 1.97 uIU/mL (0.358-3.74); Triglycerides 230 mg/dL; Very Low Density Lipoprotein 46 mg/dL (5-40)
== END | disposition home or self-care (01) ==
LOC: MFPLAB 15:25
PROVIDERS: PCP Family Medicine; Referring Provider Family Medicine; Visit Provider Family Medicine
DX: R10.9 Unspecified abdominal pain (principal)
CPT/HCPCS: 36415; 80048; 80061; 82306; 84443

== ENCOUNTER → 2023-02-25 | Outpatient (CLI) | payer OTHER, SELFPAY ==
[2023-02-25 18:42] LABS: ALB/GLOB Ratio 1.1 RATIO (0.9-2.4); AST(SGOT) 38 U/L (15-37); Alanine Aminotransfer ALT/SGPT 28 U/L (13-56); Albumin, Serum 3.9 g/dL (3.2-5.0); Alkaline Phosphatase 64 U/L (45-117); Anion Gap 5 (5-15); BUN 9 mg/dL (7-18); BUN/Creat Ratio 9.5 RATIO (10-20); Calcium,Total 9.1 mg/dL (8.5-10.1); Chloride 109 mmol/L (98-107); Cholesterol 244 mg/dL (200); Creatinine, Serum 0.95 mg/dL (0.55-1.02); EST Glomerular Filtration Rate 71 mL/min (>60); Est Glom Filt Rate - Afr Amer 86 mL/min (>60); Free T3 2.8 pg/mL (2.18-3.98); Globulin 3.7 g/dL (2.2-4.2); Glucose 87 mg/dL (74-106); High Density Lipoprotein 59 mg/dL; Protein, Total 7.6 g/dL (6.4-8.2); Sodium Level 140 mmol/L (136-145); T4 Free Direct 0.83 ng/dL (0.76-1.46); Thyroid Stim Hormone (TSH) 2.63 uIU/mL (0.358-3.74); Triglycerides 162 mg/dL; Very Low Density Lipoprotein 32 mg/dL (5-40)
== END | disposition home or self-care (01) ==
LOC: MFPLAB 15:23
PROVIDERS: PCP Family Medicine; Visit Provider Family Medicine
DX: E03.9 Hypothyroidism, unspecified (principal); E78.5 Hyperlipidemia, unspecified
CPT/HCPCS: 36415; 80053; 80061; 84439; 84443; 84481

== ENCOUNTER → 2023-09-17 | Outpatient (CLI) | payer OTHER, SELFPAY ==
[2023-09-17 13:15] LABS: ALB/GLOB Ratio 0.9 RATIO (0.9-2.4); AST(SGOT) 14 U/L (15-37); Alanine Aminotransfer ALT/SGPT 21 U/L (13-56); Albumin, Serum 3.4 g/dL (3.2-5.0); Alkaline Phosphatase 48 U/L (45-117); Anion Gap 4 (5-15); BUN 9 mg/dL (7-18); BUN/Creat Ratio 8.3 RATIO (10-20); Calcium,Total 9.1 mg/dL (8.5-10.1); Chloride 111 mmol/L (98-107); Cholesterol 216 mg/dL (200); Creatinine, Serum 1.09 mg/dL (0.55-1.02); EST Glomerular Filtration Rate 60 mL/min (>60); Est Glom Filt Rate - Afr Amer 73 mL/min (>60); Free T3 2.9 pg/mL (2.18-3.98); Globulin 3.9 g/dL (2.2-4.2); Glucose 87 mg/dL (74-106); High Density Lipoprotein 71 mg/dL; Potassium 3.8 mmol/L (3.5-5.1); Protein, Total 7.3 g/dL (6.4-8.2); Sodium Level 140 mmol/L (136-145); T4 Free Direct 0.97 ng/dL (0.76-1.46); Triglycerides 135 mg/dL; Very Low Density Lipoprotein 27 mg/dL (5-40)
== END | disposition home or self-care (01) ==
PROVIDERS: PCP Family Medicine; Referring Provider Family Medicine; Visit Provider Family Medicine
DX: E03.9 Hypothyroidism, unspecified (principal); E78.5 Hyperlipidemia, unspecified
CPT/HCPCS: 36415; 80053; 80061; 84439; 84443; 84481